=== PATIENT | female | born 1960 | race Caucasian/White ===

== ENCOUNTER 2016-07-21 10:22 | Emergency (ER) | payer OTHER ==
[~2016-07-21] VITALS: Ht 180.3 cm; Wt 110.2 kg
[2016-07-21 12:24] LABS: EOSINOPHIL (%) 0.9 % (0-5); EOSINOPHIL COUNT 0.1 K/uL (0-0.3); HEMATOCRIT 43.9 % (36.0-46.0); IMMATURE GRANULOCYTE (%) 0.4 % (0.0-0.7); INSTRUMENT ABS NEUTROPHIL CT 5.9 K/uL; LYMPHOCYTE COUNT 2.1 K/uL (1.0-2.8); MCHC 32.6 G/DL (30.0-36.0); MEAN PLAT.VOLUME 9.8 uM^3 (9.5-12.4); MONOCYTE (%) 5.6 % (3-12); MONOCYTE COUNT 0.5 K/uL (0-0.8); NEUTROPHIL (%) 68.7 % (45-76); NEUTROPHIL COUNT 5.9 K/uL (1.8-6.4); PLATELET COUNT 286 K/uL (156-360); RBC DIS.WIDTH-CV 12.6 % (11.8-14.6); RBC DIS.WIDTH-SD 41.3 % (39-53); RED BLOOD COUNT 4.93 M/uL (3.80-5.20); WHITE BLOOD COUNT 8.6 K/uL (4.1-10.2)
[2016-07-21 12:31] LABS: CHLORIDE 107 mEq/L (99-109); POTASSIUM 3.5 mEq/L (3.7-5.4); SODIUM 140 mEq/L (136-147)
[2016-07-21 12:33] LABS: GLUCOSE 186 mg/dL (70-99)
[2016-07-21 12:34] LABS: ANION GAP 11 MEQ/L (2-14)
[2016-07-21 12:36] LABS: GFR ESTIMATE (CALCULATED) > 59 mL/min/; SERUM ETHYL ALCOHOL < 10 mg/dL
[2016-07-21 12:37] LABS: UREA NITROGEN (BUN) 20 mg/dL (9-23)
[2016-07-21 12:43] LABS: ADD MIUA? YES; BILIRUBIN SMALL; BLOOD NEGATIVE; COLOR AMBER ((YELLOW)); GLUCOSE (STRIP) NEGATIVE; KETONES 5; LEUKOCYTES TRACE; NITRITE NEGATIVE; PROTEIN (STRIP) 30; SPECIFIC GRAVITY 1.027 (1.000-1.030)
[2016-07-21 12:49] LABS: QUANTITATIVE HCG < 4.0 MIU/ML
[2016-07-21 13:00] LABS: BACTERIA NONE SEEN /HPF; CALCIUM OXALATE CRYSTALS 3+ /HPF; EPITHELIAL CELLS 1+ /HPF; HYALINE CASTS 0-5 /LPF; MUCUS 2+ /LPF; RED BLOOD CELLS 20-30 /HPF (0-5); WHITE BLOOD CELLS 0-5 /HPF (0-5)
[2016-07-21 13:14] LABS: AMPHETAMINE NEGATIVE (500 ng/mL); BARBITURATES NEGATIVE (200 ng/mL); BENZODIAZEPINES NEGATIVE (150 ng/mL); COCAINE NEGATIVE (150 ng/mL); INTERNAL CONTROLS VALID? YES; METHADONE NEGATIVE (200 ng/mL); METHAMPHETAMINE NEGATIVE (500 ng/mL); OPIATES (MORPHINE) NEGATIVE (100 ng/mL); OXYCODONE NEGATIVE (100 ng/mL); PHENCYCLIDINE NEGATIVE (25 ng/mL); PROPOXYPHENE NEGATIVE (300 ng/mL); THC CANNABINOIDS NEGATIVE (50 ng/mL); TRICYCLIC ANTIDEPRESSANTS NEGATIVE (300 ng/mL)
[2016-07-21 18:43] VITALS: BP 140/85
== END 2016-07-21 18:46 ==
LOC: EME 10:22
PROVIDERS: Emergency Medicine
DX: F31.13 Bipolar disorder, current episode manic without psychotic features, severe (principal)
CPT/HCPCS: 80048; 81003; 84702; 85025; 90837; 99281; 99285; G0480; J2060

== ENCOUNTER 2016-08-08 12:44 | Inpatient (IN) | payer OTHER ==
[~2016-08-08] VITALS: Ht 175.3 cm; Wt 112.5 kg
[2016-08-08] MEDS ORDERED: BENICAR20 MG PO (14:12)
[2016-08-08 14:13] LABS: HEMATOCRIT 44.3 % (36.0-46.0); MCH 29.1 PG (29.0-34.0); MCV 88.4 FL (83-99); MEAN PLAT.VOLUME 9.7 uM^3 (9.5-12.4); PLATELET COUNT 271 K/uL (156-360); RBC DIS.WIDTH-CV 12.5 % (11.8-14.6); RBC DIS.WIDTH-SD 40.4 % (39-53); RED BLOOD COUNT 5.01 M/uL (3.80-5.20); WHITE BLOOD COUNT 10.7 K/uL (4.1-10.2)
[2016-08-08 14:13] LABS: ADD MIUA? YES; BILIRUBIN NEGATIVE; BLOOD NEGATIVE; COLOR YELLOW ((YELLOW)); GLUCOSE (STRIP) NEGATIVE; KETONES 5; LEUKOCYTES TRACE; NITRITE NEGATIVE; PROTEIN (STRIP) 30; SPECIFIC GRAVITY 1.025 (1.000-1.030); UROBILINOGEN 0.2 MG/DL (0.2-1.0)
[2016-08-08 14:14] LABS: AMPHETAMINE NEGATIVE (500 ng/mL); BARBITURATES NEGATIVE (200 ng/mL); BENZODIAZEPINES NEGATIVE (150 ng/mL); COCAINE NEGATIVE (150 ng/mL); INTERNAL CONTROLS VALID? YES; METHADONE NEGATIVE (200 ng/mL); METHAMPHETAMINE NEGATIVE (500 ng/mL); OPIATES (MORPHINE) NEGATIVE (100 ng/mL); OXYCODONE NEGATIVE (100 ng/mL); PHENCYCLIDINE NEGATIVE (25 ng/mL); PROPOXYPHENE NEGATIVE (300 ng/mL); THC CANNABINOIDS NEGATIVE (50 ng/mL); TRICYCLIC ANTIDEPRESSANTS NEGATIVE (300 ng/mL)
[2016-08-08 14:19] LABS: BACTERIA NONE SEEN /HPF; CALCIUM OXALATE CRYSTALS 3+ /HPF; EPITHELIAL CELLS RARE /HPF; HYALINE CASTS 0-5 /LPF; MUCUS TRACE /LPF; RED BLOOD CELLS NONE SEEN /HPF (0-5); UCUL ADDED? NO; WHITE BLOOD CELLS 0-5 /HPF (0-5)
[2016-08-08 14:29] LABS: CHLORIDE 106 mEq/L (99-109); POTASSIUM 3.6 mEq/L (3.7-5.4); SODIUM 143 mEq/L (136-147)
[2016-08-08 14:31] LABS: GLUCOSE 130 mg/dL (70-99)
[2016-08-08 14:32] LABS: ANION GAP 15 MEQ/L (2-14)
[2016-08-08 14:34] LABS: SERUM ETHYL ALCOHOL < 10 mg/dL
[2016-08-08 14:35] LABS: GFR ESTIMATE (CALCULATED) > 59 mL/min/
[2016-08-08 14:36] LABS: UREA NITROGEN (BUN) 18 mg/dL (9-23)
[2016-08-08] MEDS ORDERED: TRILEPTAL300 MG PO (18:52)
[2016-08-08] MEDS ORDERED: VITAMIN D32000 UNI1 PO (18:52)
[2016-08-08] MEDS ORDERED: MAGNESIUM OXID500 MG PO (18:53)
[2016-08-08] MEDS ORDERED: SEROQUEL12.5 MG PO (18:53)
[2016-08-08] MEDS ORDERED: SEROQUEL XR150 MG PO (18:55)
[2016-08-08] MEDS ORDERED: MELATIN3 MG PO (18:56)
[2016-08-08] MEDS ORDERED: METFORMIN HCL500 MG PO (18:56)
[2016-08-08] MEDS ORDERED: CETIRIZINE HCL10 M1 PO (18:57)
[2016-08-08] MEDS ORDERED: NORCO 5/3251 TABLET PO (18:57)
[2016-08-08] MEDS ORDERED: ENZYME DIGEST1 EACH PO (18:58)
[2016-08-08 19:09] VITALS: BP 175/92
[2016-08-08 19:12] VITALS: BP 175/92
[2016-08-09 07:48] VITALS: BP 162/74
[2016-08-09 15:31] VITALS: BP 179/103
[2016-08-10 07:51] VITALS: BP 181/80
[2016-08-10 15:34] VITALS: BP 119/76
[2016-08-11 08:47] VITALS: BP 181/77
[2016-08-11 15:55] VITALS: BP 174/84
[2016-08-12 07:56] VITALS: BP 125/75
[2016-08-12 15:28] VITALS: BP 187/94
[2016-08-13 00:14] VITALS: BP 193/92
[2016-08-13 15:05] VITALS: BP 212/102
[2016-08-13 21:18] VITALS: BP 181/79
[2016-08-14 08:05] VITALS: BP 174/81
[2016-08-14 15:58] VITALS: BP 172/89
[2016-08-14 15:59] VITALS: BP 168/74
[2016-08-15 07:35] VITALS: BP 145/78
[2016-08-15 15:44] VITALS: BP 153/72
[2016-08-16 07:57] VITALS: BP 143/63
[2016-08-16 16:11] VITALS: BP 159/76
[2016-08-16 19:24] VITALS: BP 155/73
[2016-08-17 08:08] VITALS: BP 161/81
[2016-08-17 11:53] VITALS: BP 161/98
[2016-08-17 22:11] VITALS: BP 143/67
[2016-08-17 22:21] LABS: POINT-OF-CARE METER ID UU13113830; POINT-OF-CARE USER ID BHSMEW
[2016-08-18 08:03] VITALS: BP 185/81
[2016-08-18 10:08] VITALS: BP 180/87
[2016-08-18 15:51] VITALS: BP 164/72
[2016-08-19 07:36] VITALS: BP 177/96
[2016-08-19 10:43] VITALS: BP 174/93
[2016-08-19 15:37] VITALS: BP 172/79
[2016-08-20 08:50] VITALS: BP 193/97
[2016-08-20] MEDS ORDERED: ADVAIR HFA120 INHALA IH (10:53)
[2016-08-20] MEDS ORDERED: VENTOLIN HFA18 GM IH (10:53)
[2016-08-20] MEDS ORDERED: LOSARTAN POTASS50 MG PO (10:53)
[2016-08-20] MEDS ORDERED: SEROQUEL XR150 MG PO (10:53)
[2016-08-20] MEDS ORDERED: OXCARBAZEPINE300 MG PO (10:53)
[2016-08-20] MEDS ORDERED: QUETIAPINE FUM100 MG PO (10:53)
[2016-08-20] MEDS ORDERED: CLONIDINE HCL0.1 MG PO (10:53)
[2016-08-20] MEDS ORDERED: CETIRIZINE HCL10 M1 PO (10:53)
[2016-08-20 11:05] VITALS: BP 152/88; BP 156/74
[2016-08-20 15:33] VITALS: BP 167/77
== END 2016-08-20 17:41 | disposition home or self-care (01) | DRG 885 ==
LOC: EME 12:44 → 1WEST 15:42 → EDOF 15:42 → 1WEST 19:04
PROVIDERS: Emergency Medicine; Psychiatry & Neurology Psychiatry
DX: F31.9 Bipolar disorder, unspecified (principal); I10 Essential (primary) hypertension; Z91.14 Patient's other noncompliance with medication regimen; J45.909 Unspecified asthma, uncomplicated; E66.9 Obesity, unspecified; Z68.36 Body mass index [BMI] 36.0-36.9, adult; E87.6 Hypokalemia; E11.65 Type 2 diabetes mellitus with hyperglycemia
CPT/HCPCS: 80048; 81003; 82948; 85027; 90837; 94640; 94640 76; 94660; 97150 GO; 97166 GO; 99202; 99281; 99285; G0480